=== PATIENT | male | born 1975 | race Hispanic/Latino ===

== ENCOUNTER 2021-10-12 11:00 | Observation (INO) | payer OTHER ==
[~2021-10-12] VITALS: Ht 170.2 cm; Wt 109.8 kg
[2021-10-12 12:44] LABS: BASOPHILS % (AUTO) 0.1 % (0.0-5.0); EOSINOPHILS % (AUTO) 5.5 % (0.0-8.0); HEMATOCRIT 45.6 % (42-54); LYMPHOCYTES % (AUTO) 23.1 % (21.0-51.0); MEAN CORPUSCULAR HEMOGLOBIN 30.2 pg (27.0-33.0); MEAN CORPUSCULAR HGB CONC 34.2 g/dL (32.0-36.0); MEAN CORPUSCULAR VOLUME 88.4 fL (79-99); MONOCYTES % (AUTO) 9.2 % (3.0-13.0); NEUTROPHILS % (AUTO) 61.7 % (40.0-77.0); PLATELET COUNT (AUTO) 153 K/uL (130-400); RED BLOOD CELL COUNT(AUTO) 5.16 MIL/uL (4.50-6.20); RED CELL DISTRIBUTION WIDTH 11.9 % (11.0-15.5); WHITE BLOOD COUNT (AUTO) 6.9 K/uL (4.8-10.8)
[2021-10-12 12:45] LABS: APPEARANCE,URINE Clear (CLEAR); BILIRUBIN,URINE Negative (NEGATIVE); COLOR,URINE Yellow (YELLOW); GLUCOSE, URINE (UA) Negative (NEGATIVE); KETONES,URINE Negative (NEGATIVE); LEUKOCYTE ESTERASE ,URINE Negative (NEGATIVE); NITRATE,URINE Negative (NEGATIVE); OCCULT BLOOD,URINE Negative (NEGATIVE); PH,URINE 5.5 (5.0-8.0); PROTEIN,URINE Negative (NEGATIVE); UROBILINOGEN,URINE 0.2 mg/dL (0.2-1.0)
[2021-10-12 12:59] LABS: POTASSIUM 3.8 mmol/L (3.5-5.1)
[2021-10-12 13:12] VITALS: BP 153/104
[2021-10-12] MEDS ORDERED: SACU1TAB7 PO (13:15)
[2021-10-12] MEDS ORDERED: CARV6.25 PO (13:15)
[2021-10-12] MEDS ORDERED: FURO40TA5 PO (13:15)
[2021-10-12] MEDS ORDERED: ASPI-1197 PO (13:15)
[2021-10-12 13:21] LABS: INR 1.04 (0.85-1.15); PROTHROMBIN TIME 11.3 SEC (9.6-11.6)
[2021-10-12] MEDS ORDERED: ACETAMINOPHEN 325 MG TAB PO PRN (13:30)
[2021-10-12] MEDS ORDERED: 0.9% NACL 500ML IV.SOLN 500 ML IV SCH (13:30)
[2021-10-13] VITALS (9 sets, daily range): BP systolic 126–171; BP diastolic 77–106
[2021-10-13] MEDS ORDERED: 0.9%NACL 1000ML 1,000 ML IV ONE (06:18)
[2021-10-13] MEDS ORDERED: IOHEXOL 350 MG/ML 100ML INFUS..BTL IV ONE ×2 (07:08→07:28)
[2021-10-13] MEDS ORDERED: IOHEXOL-350 50ML VIAL IV ONE ×2 (07:08→07:28)
[2021-10-13] MEDS ORDERED: LIDOCAINE HCL 400MG/20ML VIAL ONE ×2 (07:09→07:28)
[2021-10-13] MEDS ORDERED: MIDAZOLAM HCL 1 MG/ML 2ML VIAL ONE ×2 (07:09→07:28)
[2021-10-13] MEDS ORDERED: FENTANYL CITRATE PF 50 MCG/1 ML 2ML VIAL ONE ×2 (07:09→07:28)
[2021-10-13] MEDS ORDERED: NITROGLYCERIN 50MG VIAL ONE (07:28)
[2021-10-13] MEDS ORDERED: HEPARIN 10,000 UNIT/10ML (1,000 UNIT/ML) VIAL ONE (07:46)
[2021-10-13] MEDS ORDERED: ONDANSETRON 4MG INJ ONE (08:22)
[2021-10-13] MEDS ORDERED: LABETALOL 20MG VIAL IV ONE (08:42)
[2021-10-13] MEDS ORDERED: DiphenhydrAMINE HCL 50 MG/ML VIAL ONE (08:48)
[2021-10-13] MEDS ORDERED: FAMOTIDINE 20MG VIAL IV ONE (08:48)
[2021-10-13] MEDS ORDERED: SOLU-MEDROL 125MG VIAL ONE (08:48)
[2021-10-13] MEDS ORDERED: CARV6.25 PO (09:51)
== END 2021-10-13 12:50 | disposition home or self-care (01) ==
LOC: DAHIP 10-13 05:58 → EDSTATUS 10-13 11:00
PROVIDERS: ADMIT Family Medicine; ATTEND Internal Medicine Cardiovascular Disease
DX: I42.0 Dilated cardiomyopathy (principal); I11.0 Hypertensive heart disease with heart failure; I50.22 Chronic systolic (congestive) heart failure; Z86.16 Personal history of COVID-19; Z87.01 Personal history of pneumonia (recurrent); Z79.899 Other long term (current) drug therapy
CPT/HCPCS: 36415; 71045; 80048; 81003; 85025; 85610; 85730; 93005; 93458; A4215; A4216; A4221; A4222; A4223 ×3; A4606; A4663; C1760; C1894 ×2; G0378 ×4; G0379; J1200; J1644 ×2; J2250; J2405; J2930; J3010; J3490 ×4; J7030; Q9965; Q9967 ×2; 99156; 99157

== ENCOUNTER → 2021-12-03 | Outpatient (CLI) | payer OTHER ==
[~2021-12-03] MED LIST: ASPI-1197 PO; CARV6.25 PO; FURO40TA5 PO; SACU1TAB7 PO
== END | disposition home or self-care (01) ==
LOC: SHCH 09:06
PROVIDERS: ATTEND Internal Medicine Cardiovascular Disease
DX: I11.0 Hypertensive heart disease with heart failure (principal); I50.22 Chronic systolic (congestive) heart failure; I25.10 Atherosclerotic heart disease of native coronary artery without angina pectoris
CPT/HCPCS: 93306